=== PATIENT | male | born 1940 | race American Indian/Alaskan Native ===

== ENCOUNTER 2018-04-30 08:54 | Day surgery (SDC) | payer MEDICARE ==
[2018-04-29 15:01] LABS: Basophils % (Auto) 0.4 % (0.0-1.8); Eosinophils # (Auto) 0.1 K/mm3 (0.0-0.4); Eosinophils % (Auto) 1.8 % (0.0-4.3); Hematocrit 38.1 % (35.5-45.6); Hemoglobin 13.4 gm/dl (11.8-15.2); Lymphocytes # (Auto) 1.4 K/mm3 (1.2-5.4); Lymphocytes % (Auto) 23.5 % (13.4-35.0); Mean Corpuscular HGB Conc 35 % (32-34); Mean Corpuscular Hemoglobin 31 pg (28-32); Mean Corpuscular Volume 89 fl (84-94); Monocytes # (Auto) 0.6 K/mm3 (0.0-0.8); Monocytes % (Auto) 10.6 % (0.0-7.3); Platelet Count 186 K/mm3 (140-440); Red Cell Distribution Width 13.7 % (13.2-15.2)
[2018-04-29 15:13] LABS: Alanine Aminotransferase 23 units/L (7-56); Albumin 4.5 g/dL (3.9-5); BUN/Creatinine Ratio 11; Blood Urea Nitrogen 12 mg/dL (9-20); Calcium 9.6 mg/dL (8.4-10.2); Hemolysis Index 11
--- NOTE | 2018-04-29 15:35 | Anesthesia Consultation ---
Anesthesia Consult and Med Hx Date of service: 04/29/18 - Airway Anesthetic Teeth Evaluation: Good ROM Head & Neck: Adequate Mental/Hyoid Distance: Adequate Mallampati Class: Class II Intubation Access Assessment: Probably Good - Pulmonary Exam CTA: Yes - Pre-Operative Health Status ASA Pre-Surgery Classification: ASA3 Proposed Anesthetic Plan: General (GA with LMA ok ,pt denies GERD) - Cardiovascular System Hx Hypertension: Yes (2008) - Central Nervous System Hx Psychiatric Problems: No - Other Systems Hx Alcohol Use: No Hx Substance Use: No Hx Cancer: No
[~2018-04-30 08:54] MED LIST: BSS OD ONE; LACTATED RINGERS 1,000 ML IV SCH; VERSED IV NR; XYLOCAINE 2%/ EPI 1:200,000 INFILTRATI ONE; XYLOCAINE 2%/EPI 1:100,000 INFILTRATI ONE
--- NOTE | 2018-04-30 11:20 | Anesthesia Day of Surgery ---
Anesthesia Day of Surgery - Day of Surgery Patient Examined: Yes Patient H&P Reviewed: Yes Patient is NPO: Yes
[2018-04-30] MEDS ORDERED: NACL BACTERIOSTATIC INFILTRATI ONE (11:22)
[2018-04-30] MEDS: VIGAMOX OD SCH ×3 (11:36→11:46)
[2018-04-30] MEDS: TETRACAINE 0.5% OD SCH ×3 (11:36→11:46)
[2018-04-30] MEDS ORDERED: TETRACAINE 0.5% ONE (12:03)
[2018-04-30] MEDS ORDERED: DIPRIVAN 10 MG/ML IV ONE ×2 (13:16→15:24)
[2018-04-30] MEDS ORDERED: SUBLIMAZE ONE ×2 (13:16→16:13)
[2018-04-30] MEDS ORDERED: XYLOCAINE CARDIAC IV ONE (13:23)
[2018-04-30] MEDS ORDERED: VERSED ONE (13:24)
[2018-04-30] MEDS ORDERED: MIOSTAT OD ONE (15:09)
[2018-04-30] MEDS ORDERED: DECADRON ONE (15:10)
[2018-04-30] MEDS ORDERED: ZOFRAN ONE (15:21)
[2018-04-30] MEDS ORDERED: LACTATED RINGERS 1,000 ML ONE (15:22)
[2018-04-30] MEDS ORDERED: VANCOMYCIN VIAL ONE (15:40)
[2018-04-30] MEDS ORDERED: NACL 0.9% 250ML 250 ML ONE (15:41)
--- NOTE | 2018-04-30 16:07 | Operative Report ---
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 Endothelial keratoplasty keratoplasty, right eye SURGEON: Merline Arciniega MD ANGLE DOZER OPERATOR SURGEON: None ANESTHESIA: Gen. anesthesia care in combination with topical and intracameral anesthesia because of the established specific risk of reflux, arrhythmias, or anxiety attacks associated with ocular manipulation, as well as the difficulty of the gas treater to manage such potentially catastrophic events while simultaneously attempting to complete the surgical procedure and was deemed necessary for the patient's safety to have an anesthesiologist was present during the procedure whenever possible. The anesthesiologist was utilized to regulate the intravenous sedation of the patient so the patient was cooperative yet not asleep in order for the patient to successfully maintain fixation of the eye on the operating light of the microscope. TOOL SHAPER SET UP OPERATOR: COMPLICATIONS: None ALLERGIES: Penicillin PREOPERATIVE NOTE: The patient is a [male] who has the diagnosis or diagnoses of Fuchs dystrophy. Examination of the posterior portion of the eyes by indirect ophthalmoscopy shows the optic nerve and retina to be normal. 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 Donor tissue will be used to replace the dysfunctional endothelium utilizing a penetrating technique into the anterior chamber. This complicated technique allows the patient to maintain structural integrity of the eye making it much more resistant to traumatic rupture than a standard keratoplasty. It also allows a larger than average surface area of transplanted endothelium which hopefully in the long run will allow for longer endothelial viability and success for the surgery. It also provides for faster visual recovery and less anisometropia than previous keratoplasty techniques. It is technically more difficult because of the complicated preparation of the donor tissue and insertion of the donor tissue into the anterior chamber with fixation of the tissue without direct suturing of the donor. This also provides an increased chance of dislocation of the donor tissue in the immediate postoperative period compared to standard keratoplasty techniques. This type of corneal transplant takes over twice as long as a standard corneal transplant. Moreover, the preparation and end of surgery are more time consuming for both the surgeon and staff: the blocking of the eye requires a longer setup time as noted, the procedure itself is more complex, and the patient needs to lay face up and flat in the recovery area for a specified period of time prior to discharge. Preoperatively, it was discussed with the patient that they could have either a standard corneal transplant or a variation of a penetrating keratoplasty where only the posterior layers of the cornea are transplanted. With this new technique, as with any corneal transplant, there is always the possibility that the surgery may need to be repeated; or, in this case, also repeated with a standard corneal transplant if the visual result is not satisfactory. However, some of the advantages of this current technique are much more rapid visual recovery and a tectonically stronger eye after surgery. Patient had an attempted endothelial keratoplasty 10 days ago. Surgery was very complicated due to the patient being combative secondary to he having pain this resulted in an inordinate amount of post anterior chamber pressure which resulted in poor graft survival. On postop cornea was found to still be very swollen graft was not looking good and it was decided out postop day one to repeat the surgery PROGNOSIS: Excellent INDICATIONS FOR SURGERY: The patient is undergoing surgery with the hope of eliminating or improving these visual difficulties. OPERATIVE REPORT: The patient was taken into the preoperative area and evaluated medically and found from a systemic standpoint to be suitable for the planned surgery and anesthesia. The patient was next taken into the operating room where they were positioned on the operating bed. The patient was then sedated and monitored by anesthesia.They were given drops of topical anesthetic in the operative eye. Betadine was used to scrub the periorbital area, eyelids , adjacent cheek and forehead. The prepped area was dried with sterile gauze. The patient was draped, and a wire speculum was placed between the eyelids. PREPARATION OF DONOR TISSUE: Prior to surgery, the donor tissue was inspected and found to be adequate for the planned procedure. The involved eye bank provided the usual demographic information on the donor including age, cause of , necessary screening and blood work. The results were negative regarding possible transmission of diseases from the donor. Our inspection of the donor tissue showed no gross abnormalities. The patients donor cornea was prepared by the eye bank to separate the anterior and posterior portions of the cornea for the planned surgery. The cornea was inspected prior to surgery and found to be suitable and at the time of surgery was taken out of the storage solution and carefully centered on the cutting block with the centration based on the centration patricia that was made the eye bank on the external surface of the cornea-the stromal side. The donor tissue was removed from the tissue storage container by carefully removing it with forceps taking care not to touch the endothelial surface but only the scleral rim Suction was applied, the centration was rechecked to make sure it was perfectly centered. Once the size of the appropriate trephine was determined, the donor was punched with the trephine. The donor cornea was then covered with tissue storage solution and put aside for use later in the surgical procedure. The patient had previously had a clear corneal incision of 5.0 mm for corneal surgery. This incision was able to be opened by using a Sinskey hook to separate the superficial area of the wound. Next, a cyclodialysis spatula was used to separate the deeper anterior vertical portion and the incision and then the lamellar portion. After the side port incision was made as noted below, a specially modified Polanco-Tao hook was introduced through the reopened incision into the anterior chamber and advanced to the nasal side of the chamber. A 23-gauge needle hooked up to an infusion of balanced salt solution was inserted through the midperipheral cornea into the anterior chamber. This was used to maintain the anterior chamber. The anterior chamber was reinflated with balanced salt solution. The donor tissue was removed from the cutting block and transferred to the operative field. It was placed on the patients cornea so that the endothelium of the donor was facing up. The tissue storage solution and any blood or other material was allowed to flow off the donor tissue. A small amount of viscoelastic was then placed on the endothelial surface of the donor. Two forceps were then used to grasp an edge of the donor taking care not to actually touch the endothelium and the posterior portion of the donor, which had been previously dissected on the artificial anterior chamber, and the donor gently partially pulled apart about half of the posterior portion from the anterior portion. A Busin Funnel was brought into the operative field and the posterior portion of the donor was pulled onto it. Intraocular forceps were used to pull the tissue into the funnel, essentially making it fold over on itself endothelial side inward. The intraocular forceps were then introduced through a previously made peripheral corneal stab incision in the nasal cornea. The forceps were moved across the anterior chamber to the area of the 5.0 mm incision. The Busin funnel was inserted into the 5.0 mm wound. The forceps grasped the edge of the donor tissue and the tissue was pulled into the eye. Once inside the eye, the forceps released their hold and the funnel was removed. Using a 30-gauge needle, a small stab incision was made in the peripheral cornea and a small amount of air was injected within the folded-over piece of donor tissue in the eye. The air was slowly injected to unfold the donor endothelial side down. Once the donor had unfolded, the anterior chamber was completely filled with air. The massaging also helped to remove retained air or fluid caught between the donor and recipient tissue. Once the donor was in the correct position and no retained fluid or air was present between the donor and recipient, the timer was started and the anterior chamber was left completely filled with air for the designated time. OTHER SPECIFICS OF THE SURGICAL PROCEDURE: Trephine size: 8.0mm Estimated thickness of donor tissue: 95micron Time anterior chamber was completely filled with air in the operating room while the donor cornea was allowed to hold in position without any manipulation or massaginmin The patient laid face up and flat in the recovery room with a partial air bubble to help with further adherence of the donor cornea to the recipient cornea for the following length of time:1hr MEDICATIONS APPLIED AT END OF SURGERY: 1gm vancomycin , 8 decradon DISCHARGE SUMMARY: The patient was released in stable condition. The patient and those with the patient were given a written sheet of postoperative instructions and counseling on any abnormal laboratory studies. The patient is to call immediately for difficulties and will otherwise see us in the morning at the office. The patient was given prescriptions for Tylenol No. 3, Keflex, and TobraDex ointment. Merline Arciniega M.D. Date cc: Dictated: Worksheets: Transcribed:
--- NOTE | 2018-04-30 16:09 | Short Stay Summary ---
Short Stay Documentation Date of service: 04/30/18 - Allergies and Medications Current Medications: Allergies Penicillins Allergy (Verified 04/30/18 12:17) Unknown PT REPORTS THAT THE INSIDE OF HIS MOUTH BECAME RAW WITH PENICILLIN. Home Medications Medication Instructions Recorded Confirmed Last Taken Type Irbesartan/Hydrochlorothiazide 1 each PO DAILY 04/29/18 04/29/18 04/30/18 06:00 History [Irbesartan-Hctz 150-12.5 mg Tb] amLODIPine [Norvasc] 5 mg PO DAILY 04/29/18 04/29/18 04/30/18 06:00 History Active Medications Lactated Ringer's (Lactated Ringers) 1,000 mls @ 100 mls/hr IV DIRECT IHSAN Last Admin: 04/30/18 11:55 Dose: 100 mls/hr Midazolam HCl (Versed) 2 mg IV PREOP NR Stop: 04/30/18 23:59 Last Admin: 04/30/18 11:56 Dose: 2 mg Moxifloxacin HCl (Vigamox) 1 drops OD Q5MIN IHSAN Stop: 05/02/18 06:01 Last Admin: 04/30/18 11:46 Dose: 1 drops - Brief post op/procedure progress note Date of procedure: 04/30/18 Pre-op diagnosis: primary graft failure right eye Post-op diagnosis: same Procedure: Repeat endothelial keratoplasty superficial keratectomy right eye Anesthesia: GETA Surgeon: ALY OLIVER Estimated blood loss: none Pathology: list (donor graft) Specimen disposition: to lab Condition: stable - Disposition Condition at discharge: Good Disposition: DC- TO HOME OR SELFCARE - Discharge Diagnoses (1) Corneal graft mechanical complication Status: Resolved Qualifiers: Encounter type: sequela Qualified Code(s): T85.398S - Other mechanical complication of other ocular prosthetic devices, implants and grafts, sequela Short Stay Discharge Plan Follow up with: REBECCA RAWLS MD [Primary Care Provider] - 7 Days
[2018-04-30] MEDS ORDERED: SUBLIMAZE IV ONE (16:17)
[2018-04-30 17:04] VITALS: BP 154/78
[2018-04-30] MEDS ORDERED: PRED FORTE 1% OD SCH (18:00)
== END 2018-04-30 17:35 | disposition home or self-care (01) ==
LOC: OR 08:54
DX: T86.841 Corneal transplant failure (principal); H18.51 Endothelial corneal dystrophy; I10 Essential (primary) hypertension; Z88.0 Allergy status to penicillin
CPT/HCPCS: 36415; 65756; 80053; 85025; 87075; 87116; J1100; J2001; J2250; J2405; J2704; J3010; J3370; J7050; J7120; V2785